=== PATIENT | male | born 1990 | race Asian ===

== ENCOUNTER 2017-01-30 23:11 | Emergency (ER) | payer OTHER ==
[~2017-01-30] VITALS: Ht 172.7 cm; Wt 88.5 kg
[2017-01-30 23:17] VITALS: Ht 172.7 cm; Wt 88.5 kg
--- NOTE | 2017-01-31 01:48 | ERA ---
ER Documentation Chief Complaint Date/Time DATE: 01/31/17 TIME: 01:48 Chief Complaint bilat eye pain and redness,hx glaucoma HPI Patient eloped before being evaluated ROS All systems reviewed and are negative except as per history of present illness. Allergies Allergies: Coded Allergies: No Known Allergy (Unverified , 01/30/17) PMhx/Soc History of Surgery: No Anesthesia Reaction: No Hx Neurological Disorder: No Hx Respiratory Disorders: No Hx Cardiac Disorders: No Hx Psychiatric Problems: No Hx Miscellaneous Medical Probl: No Hx Alcohol Use: Yes (SOCIALLY) Hx Substance Use: Yes (MARIJUANA) Hx Tobacco Use: Yes Smoking Status: Smoker,current status unk Physical Exam Vitals Vital Signs Date Time Temp Pulse Resp B/P Pulse Ox O2 Delivery O2 Flow Rate FiO2 01/30/17 23:17 98.3 82 18 143/72 98 Physical Exam Eloped before evaluation DANI PRAJAPATI PA-C Jan 31, 2017 01:48 Resp: Clear to auscultation bilaterally Cardio: Regular rate and rhythm, no murmurs Abd: Soft, non tender, non distended. Normal bowel sounds Skin: No petechiae or rashes Back: No midline or flank tenderness Ext: No cyanosis, or edema Neur: Awake and alert Psych: Normal Mood and Affect DANI PRAJAPATI PA-C Jan 31, 2017 01:48
== END 2017-01-31 02:30 | disposition left against medical advice (07) ==
LOC: FTE 23:11 → E/R 01-31 02:30
DX: Z53.21 Procedure and treatment not carried out due to patient leaving prior to being seen by health care provider (principal)